=== PATIENT | male | born 1965 | race Two or more races ===

== ENCOUNTER 2020-08-04 05:56 | Outpatient (REF) | payer OTHER, SELFPAY ==
[2020-08-04 07:28] LABS: Alanine Aminotransferase 24 U/L (0-40); Alkaline Phosphatase 105 U/L (39-117); Anion Gap 11 (12-20); Aspartate Amino Transferase 22 U/L (5-37); Bilirubin Total 0.5 mg/dL (0.0-1.0); Blood Urea Nitrogen 15 mg/dL (9-16); Calcium 9.6 mg/dL (8.4-10.2); Carbon Dioxide 27 mmol/L (22-29); Chloride 108 mmol/L (96-108); Cholesterol 220 mg/dL; Estimated Glomerular Filt Rate > 60; Glucose Fasting 96 mg/dL (60-99); HDL Cholesterol 48 mg/dL; LDL Cholesterol Calculated 150 mg/dl; Potassium 4.3 mmol/L (3.3-5.1); Sodium 142 mmol/L (135-145); Total Protein 6.9 g/dL (6.5-8.0); Triglycerides 110 mg/dL
[2020-08-04 08:19] LABS: Creatinine Urine 146.58 mg/dL
== END 2020-08-04 05:57 | disposition home or self-care (01) ==
LOC: HO.LAB 05:56
PROVIDERS: PCP Internal Medicine; Visit Provider Internal Medicine
DX: E78.5 Hyperlipidemia, unspecified (principal); E11.9 Type 2 diabetes mellitus without complications; R40.0 Somnolence
CPT/HCPCS: 36415; 80053; 80061; 82043

== ENCOUNTER → 2020-09-05 14:34 | Outpatient (BNVA) | payer OTHER, SELFPAY | PROVIDERS: PCP Internal Medicine; Referring Provider Internal Medicine; Visit Provider Surgery | DX: K42.9 Umbilical hernia without obstruction or gangrene (principal) | CPT/HCPCS: 99202 ==

== ENCOUNTER 2020-09-07 07:44 | Outpatient (REF) | payer OTHER, SELFPAY ==
--- NOTE | ~2020-09-07 | US_ITS ---
EXAMINATION: US ABDOMEN LIMITED CLINICAL INFORMATION: Type 2 diabetes mellitus without complication. Umbilical hernia. COMPARISON: None TECHNIQUE: Real-time imaging of the umbilicus. FINDINGS: Limited sonogram demonstrates a fat-containing umbilical hernia. There is possible peristalsis noted in the area suggesting a portion of bowel may be contained within the hernia. No free fluid. The hernia neck measures 2.7 cm. US/US abdomen limited IMPRESSION: Umbilical hernia, possibly containing bowel. Consider CT abdomen and pelvis for further evaluation.
== END 2020-09-07 07:45 | disposition home or self-care (01) ==
LOC: HO.US 07:44
PROVIDERS: Visit Provider Internal Medicine
DX: E11.9 Type 2 diabetes mellitus without complications (principal)
CPT/HCPCS: 76705

== ENCOUNTER 2020-09-25 07:03 | Day surgery (SDC) | payer OTHER, SELFPAY ==
[2020-09-15 13:35] VITALS: BMI 33.7
[2020-09-25] VITALS (9 sets, daily range): BP systolic 99–162; BP diastolic 62–115; PULSE 57–68; RESP 16–20; TEMP 36.1–36.6; O2SAT 93–97
[2020-09-25] MEDS: Lactated Ringers 1,000 ML 100 ML IVCONT (07:27)
[2020-09-25 07:51] LABS: Glucose, Whole Blood 100 mg/dL (60-115)
--- NOTE | 2020-09-25 08:04 | HO.ANESPROP2 ---
[facility] Active Problems Active Problems: All Active Problems (Updated 09/15/20 @ 13:25 by Adenike Mulligan) Umbilical hernia (Acute) Daytime somnolence (Acute) Umbilical hernia (Acute) Allergic rhinitis (Acute) Depression with anxiety (Acute) Pure hypercholesterolemia (Acute) Diabetes mellitus (Acute) Past Medical History Medical History Allergic rhinitis Daytime somnolence Depression with anxiety Diabetes mellitus Pure hypercholesterolemia Umbilical hernia Family History Family History Father No problems noted. Mother Diabetes Hypertension Chronic mental illness Alzheimers disease Family/Other FH: mental illness Family history of problems with anesthesia: No Surgical History Surgical History History of ear surgery History of Problems with Anesthesia: No Social History Social History Housing: Apartment Alcohol intake: current Alcohol intake frequency: holidays/special occasions only Alcohol type: beer and wine Patient Tobacco Use Status: Current everyday Tobacco user Tobacco use type: Cigarette Cigarettes Per Day: 5 e-Cigarette/Vaping Use: Never Used Second Hand Smoke Exposure: No Advance Directives Information Provided: No service: No Current occupational status: employed Current occupational exposures/hazards: No Meds Allergies Allergy/AdvReac Type Severity Reaction Status Date / Time No Known Allergies Allergy Verified 08/10/20 16:48 Active Medications: Current Medications Generic Name Dose Route Start Last Admin Trade Name Freq PRN Reason Stop Dose Admin Lactated Ringer's 1,000 mls @ 100 mls/hr 09/25/20 06:15 09/25/20 07:27 Lr IVCONT 100 mls/hr .Q10H GUNNAR Administration Exam Exam Date and Time: September 25, 2020 0804 Height,Weight and Vital Signs: Height 5 ft 6.5 in Weight 96.162 kg Last Vital Signs Temp 97.8 F 09/25/20 07:05 Pulse 60 09/25/20 07:05 Resp 20 09/25/20 07:05 BP 117/71 09/25/20 07:05 Pulse Ox 95 09/25/20 07:05 Pertinent Lab Results Pertinent Lab Results: Laboratory Tests 09/25/20 07:12 POC Glucose 100 Airway Mallampati Class: II TM Dist: >3cm Neck ROM: Full Assessment and Plan Assessment Anesthesia Assessment: Anesthesia Plan Discussed and Chart Reviewed Final Anesthetic Review Family History of Problems with Anesthesia: No History of Problems with Anesthesia: No NPO: Yes ASA Class: II Final Preanesthetic Review: No Changes in Pt Med Stat, Meds/Allgs Chart Reviewed, Consent Obtained/Reviewed and Anes Risks/Benef Reviewed Patient Risk: Low Procedure Risk: Low Assessment/Block/Sedation in SS: Assess/Block/Sedation-SS Anesthetic Plan Anesthetic Plan: GA Disposition: Standard PACU
--- NOTE | 2020-09-25 08:37 | MHC.SHP ---
Pre-Procedural Eval Section A Date of Service: 09/25/20 The patient is an INPATIENT: No Changes since office visit: Yes Patient answered all questions; No Cold of Flu in the past 2 weeks, No New Medical Problems and No Changes in Medication The History & Physical has been completed within 30 days and I have reviewed it.: Yes Section B Chief Complaint: umbilical hernia without obstruction Allergies: Allergies Allergy/AdvReac Type Severity Reaction Status Date / Time No Known Allergies Allergy Verified 08/10/20 16:48 Plan Diagnosis/Plan: Unchanged I have reviewed the history and physical and performed a pertinent physical examination on my patient. No changes have occurred unless specified.
--- NOTE | 2020-09-25 08:39 | W.PM.OPN ---
Operative Note Operative Note Date of Service: 09/25/20 Narrative: Preoperative diagnosis:Umbilical hernia Postoperative diagnosis:same Procedure:Repair of Umbilical hernia with mesh Surgeon: Baldev Chiang MD Business Analytics Director: Trena Agarwal PA-C Anesthesia:LMA General Indications for procedure: 55-year-old male patient presenting with an enlarging umbilical hernia which is now causing discomfort. On examination he is found to have a 4 cm umbilical hernia which does not reduce with light pressure. Operative findings: Umbilical hernia measuring approximately 4 cm repaired using a 8 cm round Ventralex mesh Specimen: Hernia sac Estimated blood loss: 10 mL Complications: None Procedure details: Patient was brought to the OR and placed in a supine position. After administering general anesthesia the patient's abdomen was prepped with ChloraPrep and draped in a sterile fashion. A surgical time-out was called and consent confirmed. Patient received preoperative antibiotics and Venodyne boots were in place. Local anesthesia consisting of 0.25% Sensorcaine with epinephrine was infiltrated circumferentially around the umbilicus. A curvilinear incision was made to the right of the umbilicus in the midline carried out through subcutaneous tissue up to the hernia sac. The hernia sac was then circumferentially dissected down to the fascial defect. A 2nd defect was noted slightly superior and was included in the dissection. The sac was then opened and a large amount of omentum noted to be incarcerated within the sac. This was freed from the adhesions and then return to the abdominal cavity. Wounds were checked for hemostasis. The sac was then for circumferentially dissected past the fascial edge into the preperitoneal space. A preperitoneal space was then created using a combination of blunt sharp dissection. Hemostasis was assured all times using electrocautery. A defect measuring 4 cm was identified. At this point a large (8 cm) Ventralex mesh was obtained. The sac was excised and sent to pathology for further examination. Peritoneum was then closed using a running 0 Polysorb suture. The circular mesh was then deployed into the preperitoneal space. It was then secured 4 quadrants using a 1. Tycron suture. The fascia was then closed over the mesh using [id number] Tycron sutures. Wounds were then irrigated and suctioned dry. Additional local anesthesia was infiltrated in subcutaneous tissue. Umbilical skin was then reattached to the fascia using a 3-0 Polysorb suture. Dermis was then reapproximated using interrupted 3-0 Polysorb sutures. Skin was then closed using a running subcuticular 4-0 Polysorb suture. Sterile dressings consisting of Steri-Strips, 3 x 3 gauze, and Tegaderm were then applied. The patient tolerated the procedure well. Sponge, instrument, and needle counts reported as correct. Patient was transferred to PACU in stable condition.
[2020-09-25] MEDS: fentaNYL citrate/PF 100 MCG/2 ML VIAL 50 MCG IVPUSH ×3 (09:55→10:20)
[2020-09-25] MEDS: oxyCODONE HCl Immed Release 5 MG TABLET PO (09:55)
[2020-09-25] MEDS: Acetaminophen 325 MG TABLET 650 MG PO (09:55)
== END 2020-09-25 12:00 | disposition home or self-care (01) ==
PROVIDERS: PCP Internal Medicine; Visit Provider Surgery
PROC: (CPT 49587; principal; 2020-09-25 08:30)
DX: K42.0 Umbilical hernia with obstruction, without gangrene (principal); K66.0 Peritoneal adhesions (postprocedural) (postinfection); J30.9 Allergic rhinitis, unspecified; F32.9 Major depressive disorder, single episode, unspecified; E78.00 Pure hypercholesterolemia, unspecified; E11.9 Type 2 diabetes mellitus without complications; Z79.84 Long term (current) use of oral hypoglycemic drugs; Z79.899 Other long term (current) drug therapy; F17.210 Nicotine dependence, cigarettes, uncomplicated
CPT/HCPCS: 49587; 82947; 88302; C1781; J0330; J0690; J1100; J2250; J2405; J3010

== ENCOUNTER → 2020-10-05 10:17 | Outpatient (BNVA) | payer OTHER, SELFPAY | PROVIDERS: PCP Internal Medicine; Visit Provider Surgery | DX: Z48.815 Encounter for surgical aftercare following surgery on the digestive system (principal); Z87.19 Personal history of other diseases of the digestive system | CPT/HCPCS: 99212 ==

== ENCOUNTER 2020-10-15 09:39 | Emergency (ER) | payer OTHER, SELFPAY ==
--- NOTE | ~2020-10-15 | CT_ITS ---
EXAMINATION: CT ABDOMEN AND PELVIS WITH CONTRAST CLINICAL INFORMATION: Post umbilical hernia repair now with swelling and redness. Rule out abscess. COMPARISON: Limited abdominal ultrasound August 2020 TECHNIQUE: Multidetector volumetric images were obtained from the superior aspect of the liver through the pubic symphysis following administration 85 mL of Omnipaque 350 intravenous contrast. Sagittal and coronal reformatted images were obtained on the technologist's workstation. Oral contrast: Yes This CT examination was performed using dose optimization techniques as appropriate, variously including the following: *Automated exposure control *Adjustment of mA and/or kV according to patient size (this includes techniques or standardized protocols for targeted exams where dose is matched to indication/reason for exam; i.e. extremities or head) *Use of iterative reconstruction technique DLP: 801 mGy-cm FINDINGS: LUNG BASES: There is atelectasis at the lung bases. LIVER, GALLBLADDER, AND BILIARY TREE: The liver is normal in size, shape, and attenuation. No focal hepatic lesion or biliary ductal dilatation is present. The gallbladder is unremarkable with no evidence of radiopaque gallstones, gallbladder wall thickening, or obvious pericholecystic inflammatory changes. PANCREAS: Unremarkable. SPLEEN: Unremarkable. ADRENAL GLANDS: Unremarkable. KIDNEYS AND URETERS: The kidneys are normal in size, shape, and attenuation. No hydronephrosis, hydroureter, or calculi seen. There is a small cyst in the upper pole of the right kidney. BLADDER: There is a right inguinal hernia containing some of the bladder. Bladder is otherwise unremarkable.. GASTROINTESTINAL TRACT: The small and large bowel are unremarkable. The appendix is unremarkable. ABDOMINAL WALL: There is a superficial fluid collection in the umbilicus measuring 3.5 cm. There is a deeper fluid collection just deep to the abdominal wall in the umbilical region measuring 2 x 6 x 5 cm in AP transverse and longitudinal dimension. Findings are concerning for possible abscesses. There is a right inguinal hernia containing fat and bladder. There is a left inguinal hernia containing fat. LYMPH NODES: Normal. VASCULAR: Unremarkable. PELVIC VISCERA: Unremarkable. OSSEOUS STRUCTURES: Unremarkable. CT/CT abdomen pelvis w con IMPRESSION: 3.5 cm superficial fluid collection in the umbilicus and 2 x 6 x 5 cm fluid collection deep to the abdominal wall worrisome for postoperative abscesses. Right inguinal hernia containing fat and bladder. Left inguinal hernia containing fat. Small right renal cyst.
[2020-10-15 09:41] VITALS: BP 126/80; PULSE 67; RESP 16; TEMP 36.5; O2SAT 97; BMI 29.7
--- NOTE | 2020-10-15 10:02 | ED_ITS ---
HPI - Skin/Abscess/Foreign Bdy General Chief complaint: Skin/Abscess/Foreign Body Stated complaint: QUEST INFECTION Time Seen by Provider: 10/15/20 09:57 Source: patient Mode of arrival: ambulatory Limitations: no limitations History of Present Illness HPI narrative: 55-year-old male presenting to the ED with complaints of redness/swelling and purulent drainage x2 days to the hernia repair site that he had repaired by Dr. Chiang on 09/25/2020. He denies any fevers, chills or any other symptoms complaints or concerns at this time. MD complaint: abscess/boil Onset (ago): day(s) (Two days) Location: generalized (Umbilical) Severity: moderate Quality: aching and constant Pain Consistency: constant Relieving factors: none Exacerbating factors: palpation Context: other (Recent surgery) Associated symptoms: denies other symptoms Treatments prior to arrival: none Related Data Previous Rx's Medication Instructions Recorded amitriptyline 25 mg tablet 25 mg PO BEDTIME #90 tab 12/08/19 sertraline 50 mg tablet 50 mg PO DAILY #90 tab 12/08/19 buspirone 7.5 mg tablet 7.5 mg PO BID #180 tab 12/09/19 loratadine 10 mg tablet 10 mg PO DAILY #90 tab 12/09/19 metformin 500 mg tablet 500 mg PO DAILY #90 tab 12/09/19 hydrocortisone 2.5 % topical cream 1 applic TOPICAL BID PRN 14 Days 01/04/20 #20 g nystatin 100,000 unit/gram topical 1 applic TOPICAL BID 14 Days #15 g 01/04/20 cream oxycodone 5 mg tablet 5 mg PO Q6H PRN #20 tab 09/25/20 cephalexin 500 mg capsule 500 mg PO Q6H 10 Days #40 cap 10/15/20 doxycycline hyclate 100 mg tablet 100 mg PO BID 10 Days #20 tab 10/15/20 oxycodone 5 mg tablet 5 mg PO BID PRN #10 tab 10/15/20 Allergies Allergy/AdvReac Type Severity Reaction Status Date / Time No Known Allergies Allergy Verified 08/10/20 16:48 Review of Systems Review of Systems: Constitutional : No Fever, No Chills, Cardiovascular : No Chest Pain, No SOB Respiratory : No Dyspnea Gastrointestinal : No abdominal pain Musculoskeletal : No Joint Swelling Skin : positive surrounding erythema to umbilical hernia repair site, No skin laceration, No Foreign bodies, No rash Neuro : No Weakness, No Numbness/tingling Psych : No SI/HI/thoughts of self injury Yes all other systems are reviewed and are negative [facility] Past Medical History Attestation statement: The following information was validated with the patient. Medical History Allergic rhinitis Daytime somnolence Depression with anxiety Diabetes mellitus Pure hypercholesterolemia Umbilical hernia Surgical History History of ear surgery Family History Family History Father No problems noted. Mother Diabetes Hypertension Chronic mental illness Alzheimers disease Family/Other FH: mental illness Social History Social History Housing: Apartment Alcohol intake: current Alcohol intake frequency: holidays/special occasions only Alcohol type: beer and wine Patient Tobacco Use Status: Current everyday Tobacco user Tobacco use type: Cigarette Cigarettes Per Day: 5 e-Cigarette/Vaping Use: Never Used Second Hand Smoke Exposure: No Advance Directives: Yes Advance Directives Information Provided: Yes Advance Directives on File: No service: No Current occupational status: employed Current occupational exposures/hazards: No Physical Exam Vital Signs: Vital Signs: Last Vital Signs Temp 98.9 F 10/15/20 10:40 Pulse 63 10/15/20 10:40 Resp 18 10/15/20 10:40 BP 108/73 10/15/20 10:40 Pulse Ox 97 10/15/20 10:40 Body Mass Index 29.7 vital signs have been reviewed as normal and appeared to be correct. Blood pressure normal. Heart rate normal. Respiration rate normal. Temperature normal. Oxygen saturation normal. Appearance: Alert. Oriented X3. No acute distress. Head: Normal external exam. Normocephalic. Eyes: PERRLA. EOMI. Conjunctiva and sclera normal. Eyelids normal. ENT: Pharynx normal. Uvula midline. Moist mucous membranes. Neck: Normal inspection. Neck supple. FROM. No adenopathy. No meningeal signs. CVS: Normal heart rate and rhythm. Heart sound normal. No murmurs noted. Pulses normal throughout. Respiratory: No respiratory distress. Painless inspiration. Breath sounds normal. No wheezes/rales/rhonchi noted. Chest nontender. No accessory muscle usage noted or decreased air movement noted. Abdomen: See picture below. Soft only mild tenderness to palpation over the umbilical site and with the surrounding erythema is located otherwise no other point tenderness is noted on the abdomen. Although right over the umbilical patient has moderate fluctuance and purulent drainage. Nondistended. No guarding. No rigidity. Bowel sounds normal in all 4 quadrants. No distention noted. No organomegaly noted. No visible injury noted. No rebound tenderness. Negative Rovsing sign. Negative obturator's sign. Negative psoas sign. Negative Miranda sign. Back: Full range of motion noted. Skin: See below for abdominal picture/hernia repair site. Otherwise the rest of the Skin is warm and dry. Normal skin color. Normal skin turgor. No additional rashes/lesions/lacerations noted unless what is shown below Extremities: Extremities exhibit normal range of motion. Extremities nontender. Neuro: Oriented X 3. No motor deficit. No sensory deficit. Reflexes normal. Normal steady gait. Course Course Course Narrative: 10:10am - 55-year-old male presenting to the ED with complaints of 2 days of worsening erythema/swelling and purulent drainage to the umbilical hernia repair site that he had repaired by Dr. Chiang on 09/25/2020. On exam patient noted to have erythema/tenderness to palpation and purulent drainage to the umbilical site along with fluctuance questioning abscess. Therefore I consulted with Dr. Chiang the general surgeon he came down and evaluated the patient he is recommending labs and a CT scan abdomen and pelvis with IV contrast to evaluate for possible deeper abscess therefore at this time labs, blood cultures, lactic acid and a CT scan abdomen pelvis with IV contrast along with 1 L of IV fluids were ordered. Will re-evaluate. Reevaluation(s) Reevaluation #1: - labs within normal limits. Lactic acid within normal limits. CT scan abdomen and pelvis revealed 2 fluid collections possibly consistent wit h abscesses. Therefore Dr. Chiang needle aspirated the umbilical site and only bloody discharge came out no purulent discharge. Will send to the lab for culture otherwise patient is receiving 2 g of Rocephin and he will be discharged with antibiotics and symptomatic treatment and instructions follow up with Dr. Chiang as scheduled on the . Patient understands agrees with this plan. Time: 11:51 MDM - Skin/Abscess/Foreign Bdy Medical Records Attestation: I reviewed the patient's medical records. Lab Data Attestation: I reviewed the patient's lab results. Result diagrams: 10/15/20 10:20 10/15/20 10:20 Labs: Lab Results 10/15/20 10/15/20 10/15/20 Range/Units 10:20 10:20 10:20 WBC 8.3 (4.8-10.8) X10*3/uL RBC 4.75 (4.60-5.80) X10*6/uL Hgb 12.9 L (14.0-18.0) g/dl Hct 40.5 L (42-52) % MCV 85.3 (80-98) fL MCH 27.2 (27.0-33.0) pg MCHC 31.9 (31.0-36.0) g/dl RDW 15.6 (11.0-16.0) % Plt Count 205 (160-400) X10*3/uL MPV 11.0 (9.4-12.4) fL Immature Gran % (Auto) 0.2 (0.0-0.4) % Neut % (Auto) 58.3 (45-73) % Lymph % (Auto) 29.1 (20-40) % Wagoner % (Auto) 7.3 (2-11) % Eos % (Auto) 4.7 H (0-4) % Baso % (Auto) 0.4 (0-2) % Lymph # (Auto) 2.4 (1.2-4.9) X10*3/uL Wagoner # (Auto) 0.6 (0.1-1.2) X10*3/uL Eos # (Auto) 0.4 (0.0-0.4) X10*3/uL Baso # (Auto) 0.0 (0.0-0.2) X10*3/uL Abs Immat Gran (auto) 0.02 (0.00-0.03) X10*3/uL Absolute Neuts (auto) 4.8 (2.0-8.3) X10*3/uL Absolute Nucleated RBC 0.000 (0.0-0.012) X10*3/uL Nucleated RBC % (auto) 0.0 (0.0-0.2) /100WBC PT 9.9 (9.9-13.0) SEC INR 0.9 (0.9-1.1) Sodium 140 (135-145) mmol/L Potassium 4.2 (3.3-5.1) mmol/L Chloride 108 (96-108) mmol/L Carbon Dioxide 25 (22-29) mmol/L Anion Gap 11 L (12-20) BUN 15 (9-16) mg/dL Creatinine 0.90 (0.5-1.4) mg/dL Estim Creat Clear Calc 99.5 Estimated GFR > 60 Random Glucose 113 (60-115) mg/dL Lactic Acid (0.5-2.0) mmol/L Calcium 8.6 D (8.4-10.2) mg/dL Magnesium 2.2 (1.6-2.6) mg/dL Total Bilirubin 0.3 (0.0-1.0) mg/dL AST 19 (5-37) U/L ALT 21 (0-40) U/L Alkaline Phosphatase 107 (39-117) U/L Total Protein 6.6 (6.5-8.0) g/dL Albumin 3.8 (3.5-5.0) g/dL 10/15/20 Range/Units 10:20 WBC (4.8-10.8) X10*3/uL RBC (4.60-5.80) X10*6/uL Hgb (14.0-18.0) g/dl Hct (42-52) % MCV (80-98) fL MCH (27.0-33.0) pg MCHC (31.0-36.0) g/dl RDW (11.0-16.0) % Plt Count (160-400) X10*3/uL MPV (9.4-12.4) fL Immature Gran % (Auto) (0.0-0.4) % Neut % (Auto) (45-73) % Lymph % (Auto) (20-40) % Wagoner % (Auto) (2-11) % Eos % (Auto) (0-4) % Baso % (Auto) (0-2) % Lymph # (Auto) (1.2-4.9) X10*3/uL Wagoner # (Auto) (0.1-1.2) X10*3/uL Eos # (Auto) (0.0-0.4) X10*3/uL Baso # (Auto) (0.0-0.2) X10*3/uL Abs Immat Gran (auto) (0.00-0.03) X10*3/uL Absolute Neuts (auto) (2.0-8.3) X10*3/uL Absolute Nucleated RBC (0.0-0.012) X10*3/uL Nucleated RBC % (auto) (0.0-0.2) /100WBC PT (9.9-13.0) SEC INR (0.9-1.1) Sodium (135-145) mmol/L Potassium (3.3-5.1) mmol/L Chloride (96-108) mmol/L Carbon Dioxide (22-29) mmol/L Anion Gap (12-20) BUN (9-16) mg/dL Creatinine (0.5-1.4) mg/dL Estim Creat Clear Calc Estimated GFR Random Glucose (60-115) mg/dL Lactic Acid 0.9 (0.5-2.0) mmol/L Calcium (8.4-10.2) mg/dL Magnesium (1.6-2.6) mg/dL Total Bilirubin (0.0-1.0) mg/dL AST (5-37) U/L ALT (0-40) U/L Alkaline Phosphatase (39-117) U/L Total Protein (6.5-8.0) g/dL Albumin (3.5-5.0) g/dL Procedures Abscess I/D Site: abdomen Local Anesthetic: lidocaine 1% Amount of anesthesia used (mL): 5 Technique: needle aspiration Amount of fluid expressed (mL): 20 Sent for culture/gram staining?: Yes Irrigation: Yes Packing used?: none Complications: other (No complication) Critical Care Time Critical Care Time Critical Care Time: Yes Total Critical Care Time: 60 Attestation: I personally attest to this time spent taking care of the patient Discharge Plan Discharge Clinical Impression: Abdominal hematoma, Cellulitis of abdominal wall Patient Disposition: Home, Self-Care Instructions: Cellulitis (ED), Hematoma (ED) Prescriptions: New doxycycline hyclate 100 mg tablet 100 mg PO BID 10 Days Qty: 20 RF: 0 cephalexin 500 mg capsule 500 mg PO Q6H 10 Days Qty: 40 RF: 0 oxycodone 5 mg tablet 5 mg PO BID PRN (Reason: pain) Qty: 10 RF: 0 No Action amitriptyline 25 mg tablet 25 mg PO BEDTIME Qty: 90 RF: 1 sertraline 50 mg tablet 50 mg PO DAILY Qty: 90 RF: 1 metformin 500 mg tablet 500 mg PO DAILY Qty: 90 RF: 3 loratadine 10 mg tablet 10 mg PO DAILY Qty: 90 RF: 3 buspirone 7.5 mg tablet 7.5 mg PO BID Qty: 180 RF: 3 oxycodone 5 mg tablet 5 mg PO Q6H PRN (Reason: pain) Qty: 20 RF: 0 nystatin 100,000 unit/gram cream 1 applic topical BID 14 Days Qty: 15 RF: 2 hydrocortisone 2.5 % cream 1 applic topical BID PRN (Reason: skin irritation) 14 Days Qty: 20 RF: 0 Referrals: Baldev Chiang MD [Physician] - 10/20/20 Keira Ibrahim MD [Primary Care Provider] - 2 days Print Language: [place] Korean
[2020-10-15 10:24] LABS: MANUAL DIFF FLAG NO
[2020-10-15 10:31] LABS: Basophils Percent Auto 0.4 % (0-2); Eosinophils Absolute Auto 0.4 X10*3/uL (0.0-0.4); Eosinophils Percent Auto 4.7 % (0-4); Hematocrit 40.5 % (42-52); Hemoglobin 12.9 g/dl (14.0-18.0); Imm Gran Abs Auto 0.02 X10*3/uL (0.00-0.03); Imm Gran Pct Auto 0.2 % (0.0-0.4); Lymphocytes Absolute Auto 2.4 X10*3/uL (1.2-4.9); Lymphocytes Percent Auto 29.1 % (20-40); Mean Corpuscular HGB Conc 31.9 g/dl (31.0-36.0); Mean Corpuscular Hemoglobin 27.2 pg (27.0-33.0); Mean Corpuscular Volume 85.3 fL (80-98); Monocytes Absolute Auto 0.6 X10*3/uL (0.1-1.2); Monocytes Percent Auto 7.3 % (2-11); Neutrophils Absolute Auto 4.8 X10*3/uL (2.0-8.3); Neutrophils Percent Auto 58.3 % (45-73); Platelet Count 205 X10*3/uL (160-400); Red Blood Count 4.75 X10*6/uL (4.60-5.80); Red Cell Distribution Width 15.6 % (11.0-16.0); White Blood Count 8.3 X10*3/uL (4.8-10.8)
[2020-10-15 10:35] LABS: Lactic Acid 0.9 mmol/L (0.5-2.0)
[2020-10-15] MEDS: 0.9 % Sodium Chloride 1,000 ML 999 ML IVCONT (10:39)
[2020-10-15 10:40] VITALS: BP 108/73; PULSE 63; RESP 18; TEMP 37.2; O2SAT 97
[2020-10-15 10:40] LABS: Alanine Aminotransferase 21 U/L (0-40); Albumin Level 3.8 g/dL (3.5-5.0); Alkaline Phosphatase 107 U/L (39-117); Anion Gap 11 (12-20); Aspartate Amino Transferase 19 U/L (5-37); Bilirubin Total 0.3 mg/dL (0.0-1.0); Blood Urea Nitrogen 15 mg/dL (9-16); Calcium 8.6 mg/dL (8.4-10.2); Carbon Dioxide 25 mmol/L (22-29); Chloride 108 mmol/L (96-108); Creatinine Clr Calc Pharmacy 99.5; Estimated Glomerular Filt Rate > 60; Glucose Random 113 mg/dL (60-115); INTERNATIONAL NORM RATIO 0.9 (0.9-1.1); Magnesium 2.2 mg/dL (1.6-2.6); Potassium 4.2 mmol/L (3.3-5.1); Prothrombin Time 9.9 SEC (9.9-13.0); Sodium 140 mmol/L (135-145); Total Protein 6.6 g/dL (6.5-8.0)
[2020-10-15] MEDS: iohexoL 350 MG/ML 100 ML INFUS..BTL IV (11:15)
[2020-10-15] MEDS: Lidocaine HCl 1 % MPF 5 ML VIAL INFILTRATI (11:32)
[2020-10-15] MEDS: cefTRIAXone sodium 2 GM in 0.9 % Sodium Chloride 50 ML IV (11:32)
--- NOTE | 2020-10-15 11:38 | PC.NURSE ---
DR STILES AT BEDSIDE.
--- NOTE | 2020-10-15 12:41 | P.OP_ITS ---
Operative Note Operative Note Date of Service: 10/15/20 Narrative: Preoperative diagnosis: Umbilical abscess following umbilical hernia repair with mesh Postoperative diagnosis: Hematoma following umbilical hernia repair with mesh Procedure: Aspiration of hematoma Surgeon: Baldev Chiang MD Windows Server Specialist: No physician Anesthesia: Local 1% lidocaine Indications for procedure: Pain and swelling at the umbilicus following umbilical hernia repair Operative findings: 12 mL of bloody fluid consistent with hematoma Specimen: Culture of hematoma Estimated blood loss: None Complications: None Procedure details: Procedures performed at the bedside in the emergency depar tment. The site of surgery was confirmed by the patient and informed consent assured. The abdomen around the umbilicus was prepped with Betadine and draped in a sterile fashion. Local anesthesia was then infiltrated along the previous incision. An 18 gauge needle was then inserted into the fluid collection. Approximately 12 mL of fluid, bloody in color, was aspirated. The collection was completely evacuated. Sterile dressings were then applied consisting of dry sterile dressings. The patient tolerated the procedure well. He was discharged to home in stable condition. He will follow up in the office in approximately 5 days. He should call sooner for any concerns regarding the incision.
== END 2020-10-15 12:36 | disposition home or self-care (01) ==
PROVIDERS: Physician Assistant Medical; Emergency Provider Emergency Medicine; PCP Internal Medicine
DX: L02.211 Cutaneous abscess of abdominal wall (principal); F17.210 Nicotine dependence, cigarettes, uncomplicated; Z71.6 Tobacco abuse counseling; Z79.899 Other long term (current) drug therapy
CPT/HCPCS: 10060; 36415; 74177; 80053; 83605; 83735; 85025; 85610; 87040; 87071; 87077; 87186; 87205; 96365; 99284; 99291; J0696; Q9967

== ENCOUNTER → 2020-10-20 08:58 | Outpatient (BNVA) | payer OTHER, SELFPAY | PROVIDERS: PCP Internal Medicine; Referring Provider Internal Medicine; Visit Provider Surgery | DX: Z48.815 Encounter for surgical aftercare following surgery on the digestive system (principal); Z87.19 Personal history of other diseases of the digestive system; Z87.2 Personal history of diseases of the skin and subcutaneous tissue | CPT/HCPCS: 99212 ==

== ENCOUNTER → 2020-11-09 14:41 | Outpatient (BNVA) | payer OTHER, SELFPAY | PROVIDERS: PCP Internal Medicine; Visit Provider Surgery | DX: Z48.815 Encounter for surgical aftercare following surgery on the digestive system (principal); Z87.19 Personal history of other diseases of the digestive system | CPT/HCPCS: 99212 ==

== ENCOUNTER 2023-12-29 12:59 | Outpatient (AMB) | payer OTHER, SELFPAY ==
--- NOTE | 2023-12-29 13:04 | MHC.PC.OV ---
Vital Signs 12/29/23 13:05 Height 5 ft 7 in Weight 218 lb 7.396 oz BMI 34.2 BP 112/78 Blood Pressure Location Lt brachial Position Sitting Intake Visit Reasons: med refill Intake Note: Patient here for medication Undergraduate Internship Required: No Accompanied by: Self / Same As Patient Allergies No Known Allergies Allergy (Verified 12/29/23 13:23) Medication List - Last Reconciled 12/29/23 by Keiar Guerra MD albuterol sulfate 90 mcg/actuation 1 puff inhalation Q4H PRN amitriptyline 25 mg PO BEDTIME azelastine 1 spray intranasal BID buspirone 7.5 mg PO BID loratadine 10 mg PO DAILY metformin 500 mg PO DAILY pravastatin 40 mg PO DAILY sertraline 50 mg PO DAILY Tobacco use date assessed: 12/29/23 Dental Screening Dental Screen Date: 12/29/23 Did you have a dental visit in the last 12 months?: No Did you have a dental problem in the last 6 months where you did not have access to dental care?: No Was dental information given to patient?: Patient has dentist HPI HPI Comments History of Present Illness Details The patient is a 58-year-old male presenting with depression. He acknowledges a history of depression and currently uses medications for its management. This condition has also been associated with a history of tobacco use, primarily as a coping mechanism for his depressive symptoms. Additionally, he reports hypercholesterolemia, for which he is taking Pravastatin 40 mg daily. He is also managing allergic rhinitis with Azelastine. Lastly, his Type 2 Diabetes Mellitus is currently controlled with Metformin once daily, with his last A1c reading around 5.6 %. The patient denies having a psychiatrist and asserts that he feels the medication suffices for treating his depression. He has not had recent episodes of chest pain. He also has anxiety stable with buspirone. He also has chronic low back pain radiating to the right leg associated with right leg numbness and tingling that has been present for years. He will be refer to pain management. [facility] Medical History (Updated 12/29/23 @ 13:34 by Keira Guerra MD) ANATOLIY (generalized anxiety disorder) Mild recurrent major depression Umbilical hernia Daytime somnolence Allergic rhinitis Depression with anxiety Pure hypercholesterolemia Diabetes mellitus Surgical History History of ear surgery Family History Father No problems noted. Mother Diabetes Hypertension Chronic mental illness Alzheimers disease Family/Other FH: mental illness Social History (Updated 12/29/23 @ 13:29 by Keira Guerra MD) Housing: Apartment Alcohol intake: current Alcohol intake frequency: holidays/special occasions only Alcohol type: beer and wine Patient Tobacco Use Status: Current everyday Tobacco user Tobacco use type: Cigarette Cigarettes Per Day: 4 e-Cigarette/Vaping Use: Never Used Second Hand Smoke Exposure: No service: No Current occupational status: disabled Current occupational exposures/hazards: No Cognitive needs: No Hearing needs: No Vision needs: Yes Questionnaire PHQ-9 Over the last 2 weeks, how often have you been bothered by any of the following problems? 1. Little interest or pleasure in doing things: several days 2. Feeling down, depressed, or hopeless: several days 3. Trouble falling or staying asleep, or sleeping too much: more than half the days 4. Feeling tired or having little energy: several days 5. Poor appetite or overeating: not at all 6. Feeling bad about yourself - or that you are a failure or have let yourself or your family down: not at all 7. Trouble concentrating on things, such as reading the newspaper or watching television: not at all 8. Moving or speaking so slowly that other people could have noticed. Or the opposite - being so fidgety or restless that you have been moving around a lot more than usual: not at all 9. Thoughts that you would be better off or of hurting yourself in some way: not at all Total score: 5 Depression Screening Interpretation: Positive Depression Screening Follow-up: Existing condition, In treatment and Follow-up Visit Requested Depression Screening Done: Yes 66971 - PHQ-9 Billing: Yes Source: Developed by Drs. Adithya Max, Katharina Gotti, Justen Mathews and colleagues, with an educational brad from [employer]. Thrive Questionnaire Date Thrive assessed: 12/29/23 I am a: Patient What is your living situation today?: I have a steady place to live Within the past 12 months, did the food you bought not last and you didn't have the money to get more?: Never true Within the past 12 months, did you worry whether your food would run out before you got money to buy more?: Never true Do you have trouble paying for medicines?: No Do you have trouble getting transportation to medical appointments?: No Do you have trouble paying your heating and electricity bill?: No Do you have trouble taking care of your child, family member or friend?: No Do you have trouble with day-to-day activities such as bathing, preparing meals, shopping, managing finances, etc.?: No Are you currently unemployed and looking for a job?: No Are you interested in more education?: No Please select the resources that you would like help with: None Currently or been in a relationship where the following occur: No concerns reported THRIVE Score: 0 AUDIT C Alcohol Use Questionnaire (AUDIT-C) 1. How often do you have a drink containing alcohol?: Never Total Score: 0 Score Reviewed/Action Taken: No ANATOLIY-7 AMB Questionnaire ANATOLIY-7 Date ANATOLIY - 7 assessed: 12/29/23 Feeling nervous, anxious, or on edge: 2 = More than half the days Not being able to stop or control worryin = Not at all Worrying too much about different things: 2 = More than half the days Trouble relaxin = Several days Being so restless that it is hard to sit still: 0 = Not at all Becoming easily annoyed or irritable: 1 = Several days Feeling afraid as if something awful might happen: 0 = Not at all Total ANATOLIY-7 score (0-4 normal; 5-9 mild; 10-14 moderate; 15-21 severe): 6 Source: Developed by Drs. Adithya Max, Katharina Gotti, Justen Mathews and colleagues, with an educational brad from [employer]. ANATOLIY-7 Assessment Billing ANATOLIY-7 Assessment Tool: ANATOLIY-7 Assessment 04231 Review of Systems Const All systems reviewed & are unremarkable except as noted in HPI and below Card Denies chest pain at rest, Denies chest pain with activity, Denies edema, Denies irregular heart rhythm, Denies claudication, Denies dyspnea, Denies dyspnea on exertion, Denies orthopnea, Denies paroxysmal nocturnal dyspnea and Denies slow heart rate Resp Denies cough, Denies dyspnea and Denies dyspnea on exertion Musc Reports back pain, Reports numbness, Reports radiating pain into limb and Reports tingling Neuro Denies lack of coordination, Reports numbness and Reports tingling Psych Reports anxiety and Reports depression Physical exam (Primary Care) Vital Signs: Last Vital Signs BP 112/78 12/29/23 13:05 BMI result Body Mass Index 34.2 BMI Assessment/Plan discussion: High BMI High, discussed plan: lifestyle, weight reduction, dietary and physical activity Tobacco/Smoking Status: Tobacco use Status Tobacco use date assessed 12/29/23 12/29/23 13:12 Patient Tobacco Use Status Current everyday Tobacco 12/29/23 13:29 Tobacco use type Cigarette 12/29/23 13:29 e-Cigarette/Vaping Use Never Used 12/29/23 13:29 Are you ready to quit: No Tobacco cessation counseling provided: Yes Items discussed: Nicotine replacement and QuitWorks Relapse Prevention: discussed the importance of a supportive environment, discussed extending NRT, discussed negative mood or depression after quitting, weight gain after smoking is common and discussed dietary, exercise and/or lifestyle changes Number of minutes spent counselin CPT code: 58652 - 4-10 Minutes PHQ-9: PHQ-9 Score PHQ-9: Total score 5 12/29/23 14:10 Depression Screening Interpretation: Positive Depression Screening Follow-up: Existing condition, In treatment and Follow-up Visit Requested Thrive Assessment: Date of Thrive Assessment Date Thrive assessed 12/29/23 12/29/23 13:12 Currently or been in a relationship where the following occur: No concerns reported Resp Effort & Inspection: normal respiratory effort Auscultation: clear to auscultation bilaterally Cardio Jugular venous distension: no JVD Rate: regular rate Rhythm: regular rhythm Heart sounds: S1 normal heart sound present and S2 normal heart sound present Extrem General: Yes full ROM Office Procedures Flu Questionnaire Does the patient have a severe egg allergy?: No Results AMB Hemoglobin A1c AMB Hemoglobin A1c 5.9 % Last Edit by ALEXANDRA Fernandez on 12/29/23 13:27 AMB Hemoglobin A1c previously reported as 5.6 Sandhya Menjivar 12/29/23 13:27 Immunizations Fluarix Triv [id number] (PF) 45 mcg (15 mcg x 3)/0.5 mL IM syringe Performing Provider: Keira Guerra MD [facility] [place] [facility] Documented (not given) by: ALEXANDRA Fernandez on 12/29/23 13:12 Reason Not Given: Patient Refused Results Reviewed Results Reviewed: Laboratory Last Values Hgb A1c (Clinic) 5.9 % (4.0-6.0) 12/29/23 13:01 Coding Level of Care Code Est Pt Level 4 (55442) Complex EM visit Add On G2211 Diagnoses Mild recurrent major depression F33.0 ANATOLIY (generalized anxiety disorder) F41.1 Right sciatic nerve pain M54.31 Type 2 diabetes mellitus without complication, without long-term current use of insulin E11.9 Diabetes mellitus type: type 2 Diabetes mellitus longterm insulin use: without longterm use Diabetes mellitus complication status: without complication Pure hypercholesterolemia E78.00 Seasonal allergic rhinitis due to pollen J30.1 Allergic rhinitis trigger: pollen Allergic rhinitis seasonality: seasonal Additional Codes ANATOLIY-7 Assessment Billing - ANATOLIY-7 Assessment Tool: ANATOLIY-7 Assessment 09898 ([id number]) PHQ-9 - 48915 - PHQ-9 Billing: Yes ([id number]) Vital Signs *Quality* - CPT code: 70982 - 4-10 Minutes ([id number]) Time Spent (min) 24 Assessment & Plan Assessment & Plan (1) Mild recurrent major depression: Code(s): F33.0 - Major depressive disorder, recurrent, mild Category: Medical (2) ANATOLIY (generalized anxiety disorder): Code(s): F41.1 - Generalized anxiety disorder Category: Medical (3) Right sciatic nerve pain: Code(s): M54.31 - Sciatica, right side Category: Medical (4) Diabetes mellitus: Comment: taking metformin Code(s): E11.9 - Type 2 diabetes mellitus without complications Category: Medical Qualifiers: Diabetes mellitus type: type 2 Diabetes mellitus long term care pharmacist insulin use: without longterm use Diabetes mellitus complication status: without complication Qualified Code(s): E11.9 - Type 2 diabetes mellitus without complications (5) Pure hypercholesterolemia: Code(s): E78.00 - Pure hypercholesterolemia, unspecified Category: Medical (6) Allergic rhinitis: Code(s): J30.9 - Allergic rhinitis, unspecified Category: Medical Qualifiers: Allergic rhinitis trigger: pollen Allergic rhinitis seasonality: seasonal Qualified Code(s): J30.1 - Allergic rhinitis due to pollen Plan - Depression: Refill current psychiatric medications; consider referral to a psychiatrist for comprehensive management. - Hypercholesterolemia: Continue Pravastatin 40 mg; order laboratory work to reassess cholesterol levels. - Allergic Rhinitis: Continue current allergy management with Celastina; avoid Preinasal. - Type 2 Diabetes Mellitus: Continue with Metformin therapy; routine monitoring through laboratory work. -Right sciatic nerve pain: Referred to pain management. - General: Check for the necessity of referrals and follow-up through self-introduction at the laboratory. Patient was informed and verbally consented to the use of an ambient scribe for clinic note documentation during this visit. I discussed with the patient his current management of depression without psychiatric oversight. Although he denies needing a psychiatrist, I emphasized the importance of specialist care in managing depression. The patient currently manages hypercholesterolemia and allergic rhinitis with daily medications, which I advised continuing. I informed the patient about the laboratory work required to evaluate his cholesterol levels. We reviewed his blood sugar levels, which are currently well-managed with Metformin. I also addressed the need to manage his back pain further, considering past physical therapy was ineffective. We discussed arranging laboratory tests and keeping an eye on refill needs. Orders: Orders AMB Hemoglobin A1c Today E11.9 - Type 2 diabetes mellitus without complications Lipid Panel Today E78.5 - Hyperlipidemia, unspecified Microalbumin, Random (w Creat) Today R80.9 - Proteinuria, unspecified Comprehensive [place]. Panel Fast Today E11.9 - Type 2 diabetes mellitus without complications Influenza [id number] Immunization Today Z23 - Encounter for immunization Referrals Pain Management Referral M54.31 - Sciatica, right side Ear/Nose/Throat Referral J30.1 - Allergic rhinitis due to pollen Medications: New azelastine 1 spray intranasal BID 30 mL 1RF 30 days pravastatin 40 mg PO DAILY 90 tabs 1RF 90 days Refilled amitriptyline 25 mg PO BEDTIME 90 tabs 1RF buspirone 7.5 mg PO BID 180 tabs 3RF loratadine 10 mg PO DAILY 90 tabs 3RF metformin 500 mg PO DAILY 90 tabs 3RF sertraline 50 mg PO DAILY 90 tabs 1RF Patient Instructions: - Continue current medications as discussed. - Proceed with laboratory tests for cholesterol levels as soon as possible. - Avoid using Preinasal for allergy relief due to reported discomfort. - Return for further evaluation of back pain as needed. - Discuss possible referral to a psychiatrist with me if there are concerns about managing depression.
[2023-12-29 13:05] VITALS: BP 112/78; BMI 34.2
== END 2023-12-29 13:35 | disposition home or self-care (01) ==
PROVIDERS: PCP Internal Medicine; Visit Provider Internal Medicine
DX: F33.0 Major depressive disorder, recurrent, mild (principal); F41.1 Generalized anxiety disorder; M54.31 Sciatica, right side; E11.9 Type 2 diabetes mellitus without complications; E78.00 Pure hypercholesterolemia, unspecified; J30.1 Allergic rhinitis due to pollen; Z23 Encounter for immunization

== ENCOUNTER → 2023-12-29 12:59 | Outpatient (BNVA) | payer OTHER, SELFPAY | PROVIDERS: PCP Internal Medicine; Visit Provider Internal Medicine | DX: F33.0 Major depressive disorder, recurrent, mild (principal); F41.1 Generalized anxiety disorder; M54.31 Sciatica, right side; E11.9 Type 2 diabetes mellitus without complications; E78.00 Pure hypercholesterolemia, unspecified; J30.1 Allergic rhinitis due to pollen | CPT/HCPCS: 83036; 90471; 96127; 99212 ==

== ENCOUNTER 2024-01-16 13:54 | Outpatient (AMB) | payer OTHER, SELFPAY ==
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
[2024-01-16 14:18] VITALS: BP 142/79; PULSE 71; O2SAT 98; BMI 33.8
== END 2024-01-16 14:39 | disposition home or self-care (01) ==
PROVIDERS: PCP Internal Medicine; Visit Provider Registered Nurse Emergency
DX: M47.816 Spondylosis without myelopathy or radiculopathy, lumbar region (principal); M54.50 Low back pain, unspecified; G89.29 Other chronic pain
CPT/HCPCS: 99204; G2211

== ENCOUNTER → 2024-01-16 13:54 | Outpatient (BNVA) | payer OTHER, SELFPAY | PROVIDERS: PCP Internal Medicine; Visit Provider Registered Nurse Emergency | DX: M47.816 Spondylosis without myelopathy or radiculopathy, lumbar region (principal); M54.31 Sciatica, right side | CPT/HCPCS: 99202 ==

== ENCOUNTER 2024-01-17 10:05 | Outpatient (REF) | payer OTHER, SELFPAY | END 2024-01-17 10:06 | disposition home or self-care (01) | LOC: HO.XRAY 10:05 | PROVIDERS: PCP Internal Medicine; Visit Provider Registered Nurse Emergency | DX: M47.816 Spondylosis without myelopathy or radiculopathy, lumbar region (principal) | CPT/HCPCS: 72110 ==

== ENCOUNTER 2024-05-22 08:20 | Outpatient (REF) | payer OTHER, SELFPAY ==
[2024-05-22 09:38] LABS: Alanine Aminotransferase 33 U/L (0-40); Albumin Level 3.9 g/dL (3.5-5.0); Alkaline Phosphatase 121 U/L (39-117); Anion Gap 10 (12-20); Aspartate Amino Transferase 24 U/L (5-37); Bilirubin Total 0.7 mg/dL (0.0-1.0); Blood Urea Nitrogen 13 mg/dL (9-16); Calcium 8.8 mg/dL (8.4-10.2); Carbon Dioxide 26 mmol/L (22-29); Chloride 108 mmol/L (96-108); Cholesterol 202 mg/dL (<200); Estimated Glomerular Filt Rate > 60; Glucose Fasting 123 mg/dL (60-99); HDL Cholesterol 41 mg/dL (>40); LDL Cholesterol Calculated 138 mg/dL (<100); Potassium 3.9 mmol/L (3.3-5.1); Sodium 140 mmol/L (135-145); Total Protein 7.2 g/dL (6.5-8.0); Triglycerides 115 mg/dL (<150)
[2024-05-22 09:51] LABS: Creatinine Urine 197.78 mg/dL; Microalbum/Creatinine Ratio Ur 4.5 ug/mg cr (<30)
== END 2024-05-22 08:21 | disposition home or self-care (01) ==
LOC: HO.LAB 08:20
PROVIDERS: PCP Internal Medicine; Visit Provider Internal Medicine
DX: E78.5 Hyperlipidemia, unspecified (principal); E11.9 Type 2 diabetes mellitus without complications; R80.9 Proteinuria, unspecified
CPT/HCPCS: 36415; 80053; 80061; 82043; 82570

== ENCOUNTER 2024-05-24 15:25 | Outpatient (AMB) | payer OTHER, SELFPAY ==
[2024-05-24 15:30] VITALS: BP 138/82; BMI 35.7
--- NOTE | 2024-05-24 15:30 | A.OFFPC_ITS ---
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 Accompanied by: Self / Same As Patient Allergies No Known Allergies Allergy (Verified 05/24/24 15:44) Medication List - Last Reconciled 05/24/24 by Keira Guerra MD albuterol sulfate 90 mcg/actuation 1 puff inhalation Q4H PRN amitriptyline 25 mg PO BEDTIME azelastine 1 spray intranasal BID 30 days buspirone 7.5 mg PO BID lidocaine 5% 1 patch topical DAILY loratadine 10 mg PO DAILY metformin 500 mg PO DAILY methocarbamol 500 mg PO TID PRN pravastatin 40 mg PO DAILY 90 days sertraline 50 mg PO DAILY Tobacco use date assessed: 05/24/24 Dental Screening Dental Screen Date: 05/24/24 Did you have a dental visit in the last 12 months?: Yes Did you have a dental problem in the last 6 months where you did not have access to dental care?: No Was dental information given to patient?: Patient has dentist HPI HPI Comments History of Present Illness Details The patient is a 59-year-old male presenting with follow-up on several chronic conditions, including type 2 diabetes mellitus, hypercholesterolemia, anxiety, depression, and sinusitis. The diabetes is currently managed with metformin 500 mg once daily, which is achieving target glycemic control as evidenced by a recent HbA1c of 6.3%. The patient is taking pravastatin 40 mg for hypercholesterolemia. Recent lipid profiles show total cholesterol at 202 mg/dL, but with an LDL level of 138 mg/dL, which is above the target of 70 mg/dL or le ss. This suggests that the current statin therapy may need adjustment. The patient reports ongoing issues with anxiety and depression, managed with buspirone for anxiety and sertraline 50 mg for depression and anxiety, respectively. While anxiety contributes to variable smoking habits, typically the patient smokes around four cigarettes per day or sometimes none. Sinusitis is described as chronic and troublesome, with sneezing and discomfort in the sinus area. Previous referrals to an radiology ct technologist (ENT) were made, but the patient has not yet attended these appointments. The patient will consider seeing an ENT specialist before traveling out of state and post-travel if surgery is needed. [facility], [facility] Medical History (Updated 05/24/24 @ 15:52 by Keira Guerra MD) ANATOLIY (generalized anxiety disorder) Mild recurrent major depression Umbilical hernia Daytime somnolence Allergic rhinitis Depression with anxiety Pure hypercholesterolemia Diabetes mellitus Surgical History History of ear surgery Family History Father No problems noted. Mother Diabetes Hypertension Chronic mental illness Alzheimers disease Family/Other FH: mental illness Social History Housing: Apartment Alcohol intake: current Alcohol intake frequency: holidays/special occasions only Alcohol type: beer and wine Patient Tobacco Use Status: Current everyday Tobacco user Tobacco use type: Cigarette Cigarettes Per Day: 4 e-Cigarette/Vaping Use: Never Used Second Hand Smoke Exposure: No service: No Current occupational status: disabled Current occupational exposures/hazards: No Cognitive needs: No Hearing needs: No Vision needs: Yes Questionnaire PHQ-9 Over the last 2 weeks, how often have you been bothered by any of the following problems? 1. Little interest or pleasure in doing things: not at all 2. Feeling down, depressed, or hopeless: not at all 3. Trouble falling or staying asleep, or sleeping too much: not at all 4. Feeling tired or having little energy: several days 5. Poor appetite or overeating: several days 6. Feeling bad about yourself - or that you are a failure or have let yourself or your family down: not at all 7. Trouble concentrating on things, such as reading the newspaper or watching television: not at all 8. Moving or speaking so slowly that other people could have noticed. Or the opposite - being so fidgety or restless that you have been moving around a lot more than usual: not at all 9. Thoughts that you would be better off or of hurting yourself in some way: not at all Total score: 2 Depression Screening Interpretation: Positive Depression Screening Follow-up: Existing condition and Follow-up Visit Requested Depression Screening Done: Yes 83219 - PHQ-9 Billing: Yes Source: Developed by Drs. Adithya Max, Katahrina Gotti, Justen Mathews and colleagues, with an educational brad from [employer]. Thrive Questionnaire Date Thrive assessed: 05/24/24 I am a: Patient What is your living situation today?: I have a steady place to live Within the past 12 months, did the food you bought not last and you didn't have the money to get more?: Never true Within the past 12 months, did you worry whether your food would run out before you got money to buy more?: Never true Do you have trouble paying for medicines?: No Do you have trouble getting transportation to medical appointments?: No Do you have trouble paying your heating and electricity bill?: No Do you have trouble taking care of your child, family member or friend?: No Do you have trouble with day-to-day activities such as bathing, preparing meals, shopping, managing finances, etc.?: No Are you currently unemployed and looking for a job?: No Are you interested in more education?: No Please select the resources that you would like help with: None Currently or been in a relationship where the following occur: No concerns reported THRIVE Score: 0 AUDIT C Alcohol Use Questionnaire (AUDIT-C) 1. How often do you have a drink containing alcohol?: Never Total Score: 0 Score Reviewed/Action Taken: No ANATOLIY-7 AMB Questionnaire ANATOLIY-7 Date ANATOLIY - 7 assessed: 05/24/24 Feeling nervous, anxious, or on edge: 2 = More than half the days Not being able to stop or control worryin = Not at all Worrying too much about different things: 1 = Several days Trouble relaxin = Not at all Being so restless that it is hard to sit still: 0 = Not at all Becoming easily annoyed or irritable: 1 = Several days Feeling afraid as if something awful might happen: 0 = Not at all Total ANATOLIY-7 score (0-4 normal; 5-9 mild; 10-14 moderate; 15-21 severe): 4 Source: Developed by Drs. Adithya Max, Katharina Gotti, Justen Mathews and colleagues, with an educational brad from [employer]. ANATOLIY-7 Assessment Billing ANATOLIY-7 Assessment Tool: ANATOLIY-7 Assessment 95656 Review of Systems Const All systems reviewed & are unremarkable except as noted in HPI and below Card Denies chest pain at rest, Denies chest pain with activity, Denies edema, Denies irregular heart rhythm, Denies claudication, Denies dyspnea, Denies dyspnea on exertion, Denies orthopnea, Denies paroxysmal nocturnal dyspnea and Denies slow heart rate Resp Denies cough, Denies dyspnea and Denies dyspnea on exertion GI Denies abdominal pain, Denies change in bowel habits, Denies excessive flatus, Denies nausea and Denies vomiting Denies urinary hesitancy, Denies urinary incontinence and Denies urinary urgency Musc Denies atrophy, Denies deformity and Denies limited range of motion Skin/Breast Denies bleeding lesions, Denies changing lesions and Denies rash Physical exam (Primary Care) Vital Signs: Last Vital Signs BP 138/82 05/24/24 15:30 BMI result Body Mass Index 35.7 Tobacco/Smoking Status: Tobacco use Status Tobacco use date assessed 05/24/24 05/24/24 15:39 Patient Tobacco Use Status Current everyday Tobacco 05/24/24 15:39 Tobacco use type Cigarette 05/24/24 15:39 e-Cigarette/Vaping Use Never Used 05/24/24 15:39 PHQ-9: PHQ-9 Score PHQ-9: Total score 2 05/24/24 15:39 Depression Screening Interpretation: Positive Depression Screening Follow-up: Existing condition and Follow-up Visit Requested Thrive Assessment: Date of Thrive Assessment Date Thrive assessed 05/24/24 05/24/24 15:39 Currently or been in a relationship where the following occur: No concerns reported Resp Effort & Inspection: normal respiratory effort Auscultation: clear to auscultation bilaterally Cardio Jugular venous distension: no JVD Rate: regular rate Rhythm: regular rhythm Heart sounds: S1 normal heart sound present and S2 normal heart sound present Extrem General: Yes full ROM Results AMB Hemoglobin A1c AMB Hemoglobin A1c 6.3 % Last Edit by ALEXANDRA Fernandez on 05/24/24 15:4 3 Results Reviewed Results Reviewed: Laboratory Last Values Hgb A1c (Clinic) 6.3 % (4.0-6.0) H 05/24/24 15:30 Coding Level of Care Code Est Pt Level 4 (60919) Complex EM visit Add On G2211 Diagnoses Recurrent sinusitis J32.9 ANATOLIY (generalized anxiety disorder) F41.1 Mild recurrent major depression F33.0 Type 2 diabetes mellitus without complication, without long-term current use of insulin E11.9 Diabetes mellitus type: type 2 Diabetes mellitus intermodal owner operator truck driver insulin use: without intermodal owner operator truck driver use Diabetes mellitus complication status: without complication Pure hypercholesterolemia E78.00 Additional Codes PHQ-9 - 06103 - PHQ-9 Billing: Yes ([id number]) ANATOLIY-7 Assessment Billing - ANATOLIY-7 Assessment Tool: ANATOLIY-7 Assessment 13496 ([id number]) Time Spent (min) 22 Assessment & Plan Assessment & Plan (1) Recurrent sinusitis: Code(s): J32.9 - Chronic sinusitis, unspecified Category: Medical (2) ANATOLIY (generalized anxiety disorder): Code(s): F41.1 - Generalized anxiety disorder Category: Medical (3) Mild recurrent major depression: Code(s): F33.0 - Major depressive disorder, recurrent, mild Category: Medical (4) Diabetes mellitus: Comment: taking metformin Code(s): E11.9 - Type 2 diabetes mellitus without complications Category: Medical Qualifiers: Diabetes mellitus type: type 2 Diabetes mellitus intermodal owner operator truck driver insulin use: without prison use Diabetes mellitus complication status: without complication Qualified Code(s): E11.9 - Type 2 diabetes mellitus without complications (5) Pure hypercholesterolemia: Code(s): E78.00 - Pure hypercholesterolemia, unspecified Category: Medical Plan Addressing hypercholesterolemia involves changing the current statin therapy from pravastatin to atorvastatin to achieve better control of LDL levels. The patient's diabetes management with metformin is on target as reflected by the satisfactory HbA1c, so no change is advised. Given issues with sinusitis and prior missed appointments with ENT specialists, efforts will continue to establish this care before and after the planned travel. Managed care for anxiety and depression remains optimal with existing medications. Future lab assessments are anticipated to monitor ongoing medical management. Patient was informed and verbally consented to the use of an ambient scribe for clinic note documentation during this visit. I discussed with the patient the rationale for transitioning from pravastatin to a more potent statin, atorvastatin, due to high LDL levels. The risks of hypercholesterolemia, including cardiovascular complications, were explained, and the benefits of improved lipid management were highlighted. We discussed the opportunity to follow through with ENT referral to assess and possibly surgically address the chronic sinusitis symptoms. The necessity for persistence in attending scheduled ENT appointments was emphasized, alongside the need for potential post-travel follow-up if surgery is considered. The potential improvement in quality of life from addressing the sinusitis was discussed. Management strategies for anxiety and smoking cessation were also addressed, offering support for these ongoing issues. Orders: Orders Lipid Panel 4 Months E78.5 - Hyperlipidemia, unspecified Microalbumin, Random (w Creat) 4 Months R80.9 - Proteinuria, unspecified Comprehensive [place]. Panel Fast 4 Months E11.9 - Type 2 diabetes mellitus without complications AMB Hemoglobin A1c Today E11.9 - Type 2 diabetes mellitus without complications Vitamin D 25-OH Total 4 Months E55.9 - Vitamin D deficiency, unspecified Referrals Ear/Nose/Throat Referral J32.9 - Chronic sinusitis, unspecified Medications: New atorvastatin 40 mg PO BEDTIME 90 days 90 tabs 0RF Discontinued pravastatin Discontinued Reason: Patient Completed Course 40 mg PO DAILY 90 days 90 tabs 1RF Patient Instructions: - Start atorvastatin as prescribed for cholesterol management. - Adhere to diabetes management with metformin. - Attend the referred ENT appointments for sinusitis evaluation before travel. - Implement strategies to reduce smoking, particularly focusing on anxiety management. - Follow up on laboratory assessments scheduled in four months. - Attend follow-up visits as needed for ongoing management and adjustments. - Seek medical attention if new symptoms or concerns arise.
== END 2024-05-24 15:54 | disposition home or self-care (01) ==
LOC: HO.HMCH 15:25
PROVIDERS: PCP Internal Medicine; Visit Provider Internal Medicine
DX: J32.9 Chronic sinusitis, unspecified (principal); F41.1 Generalized anxiety disorder; F33.0 Major depressive disorder, recurrent, mild; E11.9 Type 2 diabetes mellitus without complications; E78.00 Pure hypercholesterolemia, unspecified

== ENCOUNTER → 2024-05-24 15:25 | Outpatient (BNVA) | payer OTHER, SELFPAY | PROVIDERS: PCP Internal Medicine; Visit Provider Internal Medicine | DX: E11.9 Type 2 diabetes mellitus without complications (principal); E78.00 Pure hypercholesterolemia, unspecified; J32.9 Chronic sinusitis, unspecified; F41.1 Generalized anxiety disorder; F33.0 Major depressive disorder, recurrent, mild; F17.210 Nicotine dependence, cigarettes, uncomplicated; R80.9 Proteinuria, unspecified; Z79.84 Long term (current) use of oral hypoglycemic drugs | CPT/HCPCS: 83036; 96127; 99212 ==

== ENCOUNTER 2024-08-18 05:13 | Emergency (ER) | payer OTHER, SELFPAY ==
[2024-08-18 05:16] VITALS: BP 140/75; PULSE 58; RESP 18; TEMP 36.7; O2SAT 98; BMI 33.8
--- NOTE | 2024-08-18 07:49 | PC.NURSE ---
Resumed care of pt at 0700, pt was upset about being in Ed for so long and not being seen. Pt given emotional support, pt did decide to leave at 0750 before being seen. He was able to leave the unit stable on RA at this time
== END 2024-08-18 07:51 | disposition left against medical advice (07) ==
PROVIDERS: Emergency Provider Emergency Medicine; PCP Internal Medicine
DX: M54.6 Pain in thoracic spine (principal); Z53.21 Procedure and treatment not carried out due to patient leaving prior to being seen by health care provider
CPT/HCPCS: 99281; 99282

== ENCOUNTER 2024-11-04 10:54 | Outpatient (AMB) | payer OTHER, SELFPAY ==
--- NOTE | 2024-11-04 11:37 | MHC.PC.OV ---
Vital Signs 11/04/24 11:38 Height 5 ft 7 in Weight 207 lb 8 oz BMI 32.5 BP 120/70 Blood Pressure Location Lt brachial Position Sitting Respiration 18 Pulse 71 Pulse Source Pulse Oximeter Temp 97.3 F Temp Source Temporal Artery Scan Pulse Oximetry (%) 94 Oxygen Delivery Method Room Air Intake Visit Reasons: DM- repeat A1C Coordinator Of Rehabilitation Services Required: No Accompanied by: Self / Same As Patient Allergies No Known Allergies Allergy (Verified 11/04/24 11:55) Medication List - Last Reconciled 11/04/24 by Keira Guerra MD albuterol sulfate 90 mcg/actuation 1 puff inhalation Q4H PRN amitriptyline 25 mg PO BEDTIME atorvastatin 40 mg PO BEDTIME 90 days azelastine 1 spray intranasal BID 30 days buspirone 7.5 mg PO BID lidocaine 5% 1 patch topical DAILY loratadine 10 mg PO DAILY metformin 500 mg PO DAILY methocarbamol 500 mg PO TID PRN sertraline 50 mg PO DAILY [Shower chair As directed] [Shower grab bars As directed] Tobacco use date assessed: 11/04/24 Dental Screening Dental Screen Date: 11/04/24 Did you have a dental visit in the last 12 months?: Yes Did you have a dental problem in the last 6 months where you did not have access to dental care?: No Was dental information given to patient?: Patient has dentist HPI HPI Comments History of Present Illness Details The patient is a 59-year-old male presenting for a routine follow-up for chronic condition management, including diabetes, hypertension, and hyperlipidemia. The patient's Type 2 Diabetes Mellitus is currently managed with metformin 500 mg once daily, and his recent HbA1c level was 6%, which is within the target range of less than 7%. He reports good control of his blood glucose levels. Hypertension is well-controlled, with blood pressure readings within the goal range without need for medication. The patient is on atorvastatin 40 mg for hyperlipidemia, with plans for laboratory evaluation at the next appointment in four months. He experiences anxiety, for which he takes buspirone 7.5 mg twice daily. Additionally, he takes sertraline 50 mg for depression, although he does not see a psychiatrist or counselor. The patient reports allergic rhinitis, particularly exacerbated by marcy weather, and uses loratadine 10 mg for symptom management. He experiences muscle spasms and has been prescribed metocarbamol, although he reports it is not effective. Social history reveals that the patient smokes approximately four cigarettes per day. [facility]LY [facility] Medical History (Updated 11/04/24 @ 12:31 by Keira Guerra MD) ANATOLIY (generalized anxiety disorder) Mild recurrent major depression Umbilical hernia Daytime somnolence Allergic rhinitis Depression with anxiety Pure hypercholesterolemia Diabetes mellitus Surgical History History of ear surgery Family History Father No problems noted. Mother Diabetes Hypertension Chronic mental illness Alzheimers disease Family/Other FH: mental illness Social History (Updated 11/04/24 @ 12:03 by Keira Guerra MD) Housing: Apartment Alcohol intake: current Alcohol intake frequency: holidays/special occasions only Alcohol type: beer and wine Patient Tobacco Use Status: Current everyday Tobacco user Tobacco use type: Cigarette Cigarettes Per Day: 2 e-Cigarette/Vaping Use: Never Used Second Hand Smoke Exposure: No service: No Current occupational status: disabled Current occupational exposures/hazards: No Cognitive needs: No Hearing needs: No Vision needs: Yes Questionnaire PHQ-9 Over the last 2 weeks, how often have you been bothered by any of the following problems? 1. Little interest or pleasure in doing things: more than half the days 2. Feeling down, depressed, or hopeless: not at all 3. Trouble falling or staying asleep, or sleeping too much: not at all 4. Feeling tired or having little energy: more than half the days 5. Poor appetite or overeating: more than half the days 6. Feeling bad about yourself - or that you are a failure or have let yourself or your family down: not at all 7. Trouble concentrating on things, such as reading the newspaper or watching television: more than half the days 8. Moving or speaking so slowly that other people could have noticed. Or the opposite - being so fidgety or restless that you have been moving around a lot more than usual: not at all 9. Thoughts that you would be better off or of hurting yourself in some way: not at all Total score: 8 Depression Screening Interpretation: Positive Depression Screening Follow-up: Existing condition, In treatment and Follow-up Visit Requested Depression Screening Done: Yes 72811 - PHQ-9 Billing: Yes Source: Developed by Drs. Adithya Max, Katharina Gotti, Justen Mathews and colleagues, with an educational brad from [employer]. Thrive Questionnaire Date Thrive assessed: 05/24/24 I am a: Patient What is your living situation today?: I have a steady place to live Within the past 12 months, did the food you bought not last and you didn't have the money to get more?: Never true Within the past 12 months, did you worry whether your food would run out before you got money to buy more?: Never true Do you have trouble paying for medicines?: Yes Do you have trouble getting transportation to medical appointments?: No Do you have trouble paying your heating and electricity bill?: Yes Do you have trouble taking care of your child, family member or friend?: Yes Do you have trouble with day-to-day activities such as bathing, preparing meals, shopping, managing finances, etc.?: No Are you currently unemployed and looking for a job?: No Are you interested in more education?: I choose not to answer this question Please select the resources that you would like help with: None Currently or been in a relationship where the following occur: No concerns reported THRIVE Score: 1 AUDIT C Alcohol Use Questionnaire (AUDIT-C) 1. How often do you have a drink containing alcohol?: Never Total Score: 0 Score Reviewed/Action Taken: No ANATOLIY-7 AMB Questionnaire ANATOLIY-7 Date ANATOLIY - 7 assessed: 05/24/24 Feeling nervous, anxious, or on edge: 0 = Not at all Not being able to stop or control worryin = Not at all Worrying too much about different things: 0 = Not at all Trouble relaxin = Not at all Being so restless that it is hard to sit still: 0 = Not at all Becoming easily annoyed or irritable: 2 = More than half the days Feeling afraid as if something awful might happen: 0 = Not at all Total ANATOLIY-7 score (0-4 normal; 5-9 mild; 10-14 moderate; 15-21 severe): 2 Source: Developed by Drs. Adithya Max, Justen Garynke and colleagues, with an educational brad from [employer]. ANATOLIY-7 Assessment Billing ANATOLIY-7 Assessment Tool: ANATOLIY-7 Assessment 12877 Review of Systems Const All systems reviewed & are unremarkable except as noted in HPI and below Card Denies chest pain at rest, Denies chest pain with activity, Denies edema, Denies irregular heart rhythm, Denies claudication, Denies dyspnea, Denies dyspnea on exertion, Denies orthopnea, Denies paroxysmal nocturnal dyspnea and Denies slow heart rate Resp Denies cough, Denies dyspnea and Denies dyspnea on exertion Physical exam (Primary Care) Vital Signs: Last Vital Signs Temp 97.3 F 11/04/24 11:38 Pulse 71 11/04/24 11:38 Resp 18 11/04/24 11:38 BP 120/70 11/04/24 11:38 Pulse Ox 94 11/04/24 11:38 Oxygen Delivery Method Room Air 11/04/24 11:38 BMI result Body Mass Index 32.5 BMI Assessment/Plan discussion: High BMI High, discussed plan: lifestyle, weight reduction, dietary and physical activity Tobacco/Smoking Status: Tobacco use Status Tobacco use date assessed 11/04/24 11/04/24 11:46 Patient Tobacco Use Status Current everyday Tobacco 11/04/24 11:46 Tobacco use type Cigarette 11/04/24 11:46 e-Cigarette/Vaping Use Never Used 11/04/24 11:46 Are you ready to quit: No Tobacco cessation counseling provided: Yes Items discussed: Nicotine replacement and QuitWorks Number of minutes spent counselin CPT code: Less than 3 minutes PHQ-9: PHQ-9 Score PHQ-9: Total score 8 11/04/24 12:00 Depression Screening Interpretation: Positive Depression Screening Follow-up: Existing condition, In treatment and Follow-up Visit Requested Thrive Assessment: Date of Thrive Assessment Date Thrive assessed 05/24/24 11/04/24 11:46 Currently or been in a relationship where the following occur: No concerns reported Resp Effort & Inspection: normal respiratory effort Auscultation: clear to auscultation bilaterally Cardio Jugular venous distension: no JVD Rate: regular rate Rhythm: regular rhythm Heart sounds: S1 normal heart sound present and S2 normal heart sound present Extrem General: Yes full ROM Coding Level of Care Code Est Pt Level 4 (18030) Complex EM visit Add On G2211 Diagnoses Mild recurrent major depression F33.0 ANATOLIY (generalized anxiety disorder) F41.1 Type 2 diabetes mellitus without complication, without long-term current use of insulin E11.9 Diabetes mellitus type: type 2 Diabetes mellitus long-term insulin use: without petroleum terminal plant operator use Diabetes mellitus complication status: without complication Pure hypercholesterolemia E78.00 Lumbar spondylosis M47.816 Muscle cramps R25.2 Seasonal allergic rhinitis J30.2 Additional Codes PHQ-9 - 28722 - PHQ-9 Billing: Yes ([id number]) ANATOLIY-7 Assessment Billing - ANATOLIY-7 Assessment Tool: ANATOLIY-7 Assessment 03263 ([id number]) Time Spent (min) 24 Assessment & Plan Assessment & Plan (1) Mild recurrent major depression: Code(s): F33.0 - Major depressive disorder, recurrent, mild Category: Medical (2) ANATOLIY (generalized anxiety disorder): Code(s): F41.1 - Generalized anxiety disorder Category: Medical (3) Diabetes mellitus: Comment: taking metformin Code(s): E11.9 - Type 2 diabetes mellitus without complications Category: Medical Qualifiers: Diabetes mellitus type: type 2 Diabetes mellitus long-term insulin use: without petroleum terminal plant operator use Diabetes mellitus complication status: without complication Qualified Code(s): E11.9 - Type 2 diabetes mellitus without complications (4) Pure hypercholesterolemia: Code(s): E78.00 - Pure hypercholesterolemia, unspecified Category: Medical (5) Lumbar spondylosis: Code(s): M47.816 - Spondylosis without myelopathy or radiculopathy, lumbar region Category: Medical (6) Muscle cramps: Code(s): R25.2 - Cramp and spasm Category: Medical (7) Seasonal allergic rhinitis: Code(s): J30.2 - Other seasonal allergic rhinitis Category: Medical Plan Plan Patient was informed and verbally consented to the use of an ambient scribe for clinic note documentation during this visit. 1. Type 2 Diabetes Mellitus The patient's Type 2 Diabetes Mellitus is managed with metformin 500 mg once daily, and his HbA1c is at 6%, which is within the target range. Continue current management and monitor HbA1c levels at the next appointment in four months. 2. Hypertension Hypertension is well-controlled with current management, and blood pressure readings are within the goal range. Continue current antihypertensive regimen and monitor blood pressure regularly. 3. Hyperlipidemia The patient is on atorvastatin 40 mg for hyperlipidemia, with plans for laboratory evaluation at the next appointment in four months. Continue current statin therapy and reassess lipid profile at the next visit. 4. Anxiety Disorder The patient takes buspirone 7.5 mg twice daily for anxiety. Continue current medication and consider referral to mental health services if symptoms persist or worsen. 5. Depression The patient is on sertraline 50 mg for depression but does not see a psychiatrist or counselor. Continue current medication and consider mental health referral for further support. 6. Allergic Rhinitis The patient uses loratadine 10 mg for allergic rhinitis, which is exacerbated by marcy weather. Continue current antihistamine therapy and monitor symptoms. 7. Muscle Spasms The patient experiences muscle spasms and has been prescribed metocarbamol, which he reports is not effective. Consider alternative muscle relaxants or additional therapies if symptoms persist. Orders: Orders Lipid Panel Today E78.5 - Hyperlipidemia, unspecified Microalbumin, Random (w Creat) Today R80.9 - Proteinuria, unspecified Vitamin D 25-OH Total Today E55.9 - Vitamin D deficiency, unspecified Magnesium Today R25.2 - Cramp and spasm Vitamin B12 and Folate Today E53.8 - Deficiency of other specified B group vitamins Comprehensive [place]. Panel Fast Today E11.9 - Type 2 diabetes mellitus without complications Medications: New buspirone 10 mg PO TID 270 tabs 1RF 90 days celecoxib (Celebrex) 200 mg PO BID PRN 60 caps 1RF pain 30 days levocetirizine 5 mg PO DAILY PRN 90 tabs 1RF allergy symptoms 90 days lidocaine 5% 1 appl topical BEDTIME PRN 30 grams 1RF pain 30 days Changed From albuterol sulfate 90 mcg/actuation 1 puff inhalation Q4H PRN To albuterol sulfate 90 mcg/actuation 1 puff inhalation Q4H PRN 6.7 grams 1RF bronchospasm 30 days Refilled azelastine 1 spray intranasal BID 30 mL 1RF 30 days amitriptyline 25 mg PO BEDTIME 90 tabs 1RF atorvastatin 40 mg PO BEDTIME 90 tabs 0RF 90 days metformin 500 mg PO DAILY 90 tabs 3RF sertraline 50 mg PO DAILY 90 tabs 1RF Discontinued buspirone Discontinued Reason: Patient Completed Course 7.5 mg PO BID 180 tabs 3RF methocarbamol No driving while taking this medication. Do no take with alcohol or other BRAND COORDINATOR Depressants Discontinued Reason: Patient Completed Course 500 mg PO TID PRN 90 tabs 1RF muscle spasm loratadine Discontinued Reason: Patient Completed Course 10 mg PO DAILY 90 tabs 3RF
[2024-11-04 11:38] VITALS: BP 120/70; PULSE 71; RESP 18; TEMP 36.3; O2SAT 94; BMI 32.5
== END 2024-11-04 12:16 | disposition home or self-care (01) ==
LOC: HO.HMCH 10:55
PROVIDERS: PCP Internal Medicine; Visit Provider Internal Medicine
DX: F33.0 Major depressive disorder, recurrent, mild (principal); F41.1 Generalized anxiety disorder; E11.9 Type 2 diabetes mellitus without complications; E78.00 Pure hypercholesterolemia, unspecified; M47.816 Spondylosis without myelopathy or radiculopathy, lumbar region; R25.2 Cramp and spasm; J30.2 Other seasonal allergic rhinitis

== ENCOUNTER → 2024-11-04 10:54 | Outpatient (BNVA) | payer OTHER, SELFPAY | PROVIDERS: PCP Internal Medicine; Visit Provider Internal Medicine | DX: F33.0 Major depressive disorder, recurrent, mild (principal); F41.1 Generalized anxiety disorder; E11.9 Type 2 diabetes mellitus without complications; E78.00 Pure hypercholesterolemia, unspecified; M47.816 Spondylosis without myelopathy or radiculopathy, lumbar region; R25.2 Cramp and spasm; J30.2 Other seasonal allergic rhinitis; Z79.84 Long term (current) use of oral hypoglycemic drugs; Z79.899 Other long term (current) drug therapy; Z13.31 Encounter for screening for depression | CPT/HCPCS: 96127; 99212 ==